=== PATIENT | female | born 1935 ===

== ENCOUNTER 2018-03-19 15:58 | Inpatient (IN) | payer MEDICARE, OTHER ==
[~2018-03-19] VITALS: Ht 165.1 cm; Wt 39.3 kg
[2018-03-19] MEDS ORDERED: SODIUM CHLORIDE FLUSH 10ML SYR IVF ONE (16:30)
[2018-03-19 16:58] LABS: INTERNATIONAL NORMALIZED RATIO 1.09 (0.93-1.1); PROTHROMBIN TIME 11.2 Seconds (9.6-11.5)
[2018-03-19 17:01] LABS: ALANINE AMINOTRANSFERASE 64 U/L (12-78); ALBUMIN 1.7 g/dL (3.4-5.0); ANION GAP 10 mmol/L (5-15); CALCIUM 8.3 mg/dL (8.5-10.1); CHLORIDE 101 mmol/L (98-107); CREATININE 0.63 mg/dL (0.55-1.02)
[2018-03-19 17:10] LABS: MEAN CORPUSCULAR HEMOGLOBIN 34.1 pg (27.0-34.8); MEAN CORPUSCULAR HGB CONC 34.5 g/dL (32.4-35.8); MEAN CORPUSCULAR VOLUME 98.7 fL (80-100); MEAN PLATELET VOLUME 7.6 fL (7.4-10.4); PLATELET COUNT 244 x10^3/uL (130-400); RED BLOOD COUNT 3.24 x10^6/uL (3.82-5.3); RED CELL DISTRIBUTION WIDTH 15.3 % (9.6-15.2)
[2018-03-19 17:15] LABS: ALKALINE PHOSPHATASE 1182 U/L (45-117); BILIRUBIN,TOTAL 12.5 mg/dL (0.2-1.0); MD YES; TOTAL PROTEIN 5.9 g/dL (6.4-8.2)
[2018-03-19 17:18] LABS: BASOS#(MANUAL) 0.09 x10^3/uL (0-0.1); BASOS% (MANUAL) 1 % (0-1); LYMPH#(MANUAL) 0.95 x10^3/uL (1-3.4); LYMPHS% (MANUAL) 11 % (22-44); MONOS#(MANUAL) 0.26 x10^3/uL (0.3-2.7); MONOS% (MANUAL) 3 % (2-9); SEG#(MANUAL) 7.31 x10^3/uL (1.8-6.8); SEGS% (MANUAL) 85 % (42-75)
[2018-03-19 17:19] LABS: <PLATELET ESTIMATE> ADEQUATE; <PLT MORPHOLOGY> NORMAL PLT MORPH; ANISOCYTOSIS 1+; TARGET CELLS 1+
[2018-03-19] MEDS ORDERED: POTASSIUM CHLORIDE 20 MEQ TAB.ER.PRT PO ONE ×2 (17:30→18:00)
[2018-03-19] MEDS ORDERED: morphine SULFATE 10 MG/ML, 1ML IVPush PRN (18:00)
[2018-03-19] MEDS ORDERED: LABETALOL 5MG/ML, 20ML IVPush PRN (18:00)
[2018-03-19] MEDS ORDERED: OXYcodone IR 5MG TABLET PO PRN (18:00)
[2018-03-19] MEDS ORDERED: ONDANSETRON 2MG/ML, 2ML IVPush PRN (18:00)
[2018-03-19] MEDS ORDERED: DOCUSATE 100 MG CAPSULE PO PRN (18:00)
[2018-03-19 18:19] LABS: ABSOLUTE RETICS # 0.057 x10^6/uL (0.5-2.5); RED BLOOD COUNT 3.22 x10^6/uL (3.82-5.3); RETICULOCYTE COUNT % 1.76 % (0.5-1.5)
[2018-03-19 18:41] LABS: BILIRUBIN,INDIRECT 2.1 mg/dL (0.0-2.0); BILIRUBIN,TOTAL 12.4 mg/dL (0.2-1.0)
[2018-03-19 18:46] LABS: BILIRUBIN, DIRECT 10.3 mg/dL (0.1-0.2)
[2018-03-19 19:20] VITALS: BP 135/72
[2018-03-19] MEDS ORDERED: [UNRECOGNIZED DRUG - OTHER] PO (19:47)
[2018-03-19] MEDS: NICOTINE 7 MG/24 HR PATCH.TD24 TD SCH (20:20)
[2018-03-19] MEDS: D5%-0.45% NACL 1,000 ML IV SCH (22:22)
[2018-03-20 03:20] VITALS: BP 107/61
[2018-03-20 03:52] LABS: MEAN CORPUSCULAR HEMOGLOBIN 34.2 pg (27.0-34.8); MEAN CORPUSCULAR HGB CONC 34.6 g/dL (32.4-35.8); MEAN CORPUSCULAR VOLUME 98.7 fL (80-100); MEAN PLATELET VOLUME 7.6 fL (7.4-10.4); PLATELET COUNT 223 x10^3/uL (130-400); RED BLOOD COUNT 2.97 x10^6/uL (3.82-5.3)
[2018-03-20 04:01] LABS: ALANINE AMINOTRANSFERASE 60 U/L (12-78); ALBUMIN 1.6 g/dL (3.4-5.0); ANION GAP 8 mmol/L (5-15); CALCIUM 7.4 mg/dL (8.5-10.1); CHLORIDE 104 mmol/L (98-107)
[2018-03-20 04:16] LABS: ALKALINE PHOSPHATASE 1131 U/L (45-117); BILIRUBIN,TOTAL 11.3 mg/dL (0.2-1.0); CREATININE 0.51 mg/dL (0.55-1.02); TOTAL PROTEIN 5.4 g/dL (6.4-8.2)
[2018-03-20 04:21] LABS: MD YES
[2018-03-20 04:24] LABS: ANISOCYTOSIS 1+; EOS#(MANUAL) 0.37 x10^3/uL (0.0-0.4); EOS% (MANUAL) 4 % (1-7); LYMPH#(MANUAL) 1.67 x10^3/uL (1-3.4); LYMPHS% (MANUAL) 18 % (22-44); MONOS#(MANUAL) 0.37 x10^3/uL (0.3-2.7); MONOS% (MANUAL) 4 % (2-9); SEG#(MANUAL) 6.88 x10^3/uL (1.8-6.8); SEGS% (MANUAL) 74 % (42-75); TARGET CELLS 1+
[2018-03-20 04:25] LABS: <PLATELET ESTIMATE> ADEQUATE; <PLT MORPHOLOGY> NORMAL PLT MORPH
[2018-03-20 08:59] VITALS: BP 97/50
[2018-03-20] MEDS ORDERED: FENTANYL PF 250 MCG/5ML ONE (13:32)
[2018-03-20] MEDS ORDERED: MIDAZOLAM 1 MG/ML, 2ML ONE (13:32)
[2018-03-20] MEDS ORDERED: LIDOCAINE-MPF 2% ,5ML ONE (13:33)
[2018-03-20] MEDS ORDERED: ROCURONIUM 10MG/ML,5ML ONE (13:33)
[2018-03-20] MEDS ORDERED: PROPOFOL 10 MG/ML, 20ML ONE (13:33)
[2018-03-20] MEDS ORDERED: PHENYLEPHRINE 10 MG/ML ONE (13:53)
[2018-03-20] MEDS ORDERED: MEPERIDINE/PF 25MG/0.5ML IVPush PRN (14:30)
[2018-03-20] MEDS ORDERED: FENTANYL PF 100 MCG/2ML IV PRN (14:30)
[2018-03-20] MEDS ORDERED: ALBUTEROL/IPRATROPIUM 2.5MG/0.5MG, 3 ML NPPB PRN (14:30)
[2018-03-20] MEDS ORDERED: HALOPERIDOL 5 MG/ML IV PRN (14:30)
[2018-03-20] MEDS ORDERED: ONDANSETRON 2MG/ML, 2ML IV PRN (14:30)
[2018-03-20] MEDS ORDERED: OXYcodone 5 MG/5 ML ORAL.SOL UDC PO PRN (14:30)
[2018-03-20] MEDS ORDERED: HYDROmorphone 1 MG/ML, 1ML IV PRN (14:30)
[2018-03-20] MEDS ORDERED: OMNIPAQUE 350 MG/ML, 50 ML BOTTLE ONE (15:38)
[2018-03-20 16:15] VITALS: BP 100/55
[2018-03-20] MEDS: D5%-0.45% NACL 1,000 ML IV SCH (17:21)
[2018-03-20 20:25] VITALS: BP 113/61
[2018-03-20] MEDS: NICOTINE 7 MG/24 HR PATCH.TD24 TD SCH (20:37)
[2018-03-20] MEDS: NEUTRA PHOS K 250 MG TABLET PO SCH (20:37)
[2018-03-20 21:11] VITALS: BP 102/57
[2018-03-21 00:48] VITALS: BP 112/60
[2018-03-21 05:49] LABS: ALBUMIN 1.5 g/dL (3.4-5.0); ANION GAP 9 mmol/L (5-15); CALCIUM 7.3 mg/dL (8.5-10.1); CHLORIDE 107 mmol/L (98-107)
[2018-03-21 05:58] LABS: MEAN CORPUSCULAR HEMOGLOBIN 33.4 pg (27.0-34.8); MEAN CORPUSCULAR HGB CONC 33.8 g/dL (32.4-35.8); MEAN CORPUSCULAR VOLUME 98.6 fL (80-100); MEAN PLATELET VOLUME 7.6 fL (7.4-10.4); PLATELET COUNT 231 x10^3/uL (130-400); RED BLOOD COUNT 3.04 x10^6/uL (3.82-5.3); RED CELL DISTRIBUTION WIDTH 14.9 % (9.6-15.2)
[2018-03-21 06:04] LABS: ALANINE AMINOTRANSFERASE 58 U/L (12-78); ALKALINE PHOSPHATASE 1070 U/L (45-117); BILIRUBIN,TOTAL 7.2 mg/dL (0.2-1.0); CREATININE 0.58 mg/dL (0.55-1.02); TOTAL PROTEIN 5.6 g/dL (6.4-8.2)
[2018-03-21 06:48] VITALS: BP 101/55
[2018-03-21 06:49] LABS: MD YES
[2018-03-21 06:53] LABS: BASOS#(MANUAL) 0.07 x10^3/uL (0-0.1); BASOS% (MANUAL) 1 % (0-1); LYMPH#(MANUAL) 1.77 x10^3/uL (1-3.4); LYMPHS% (MANUAL) 26 % (22-44); MONOS#(MANUAL) 0.48 x10^3/uL (0.3-2.7); MONOS% (MANUAL) 7 % (2-9); SEG#(MANUAL) 4.49 x10^3/uL (1.8-6.8); SEGS% (MANUAL) 66 % (42-75)
[2018-03-21 06:54] LABS: ANISOCYTOSIS 1+
[2018-03-21 06:55] LABS: TARGET CELLS 1+
[2018-03-21 06:56] LABS: <PLATELET ESTIMATE> ADEQUATE; <PLT MORPHOLOGY> NORMAL PLT MORPH; SPHEROCYTES 1+
[2018-03-21] MEDS ORDERED: POTASSIUM CHLORIDE 20 MEQ TAB.ER.PRT PO ONE (09:30)
[2018-03-21] MEDS: NEUTRA PHOS K 250 MG TABLET PO SCH ×3 (09:55→21:16)
[2018-03-21] MEDS ORDERED: OMNIPAQUE 350 MG/ML, 100ML BOTTLE ONE (13:45)
[2018-03-21 14:21] VITALS: BP 127/60
[2018-03-21 19:48] VITALS: BP 101/47
[2018-03-21] MEDS: NICOTINE 7 MG/24 HR PATCH.TD24 TD SCH (21:16)
[2018-03-22 00:54] VITALS: BP 115/61
[2018-03-22 04:52] LABS: ALANINE AMINOTRANSFERASE 44 U/L (12-78); ALBUMIN 1.4 g/dL (3.4-5.0); ANION GAP 9 mmol/L (5-15); CALCIUM 7.3 mg/dL (8.5-10.1); CHLORIDE 107 mmol/L (98-107); CREATININE 0.48 mg/dL (0.55-1.02)
[2018-03-22 04:54] LABS: ALKALINE PHOSPHATASE 943 U/L (45-117); BILIRUBIN,TOTAL 5.1 mg/dL (0.2-1.0)
[2018-03-22 07:28] VITALS: BP 100/52
[2018-03-22] MEDS: NEUTRA PHOS K 250 MG TABLET PO SCH (10:30)
[2018-03-22 12:30] VITALS: BP 112/65
[2018-03-22] MEDS ORDERED: NICO-485 TD (12:44)
[2018-03-22] MEDS ORDERED: DOCU-131 PO (12:44)
[2018-03-22] MEDS ORDERED: ACET325T21 PO (12:44)
== END 2018-03-22 15:05 | disposition home or self-care (01) | DRG 444 ==
LOC: ED 16:26 → EDIP 16:27 → ED 16:46 → 3NW 17:55
PROVIDERS: ADMIT Hospitalist; ATTEND Hospitalist
PROC: 0FB98ZX Excision of Common Bile Duct, Via Natural or Artificial Opening Endoscopic, Diagnostic (ICD-10-PCS; 2018-03-20)
PROC: BF101ZZ Fluoroscopy of Bile Ducts using Low Osmolar Contrast (ICD-10-PCS; 2018-03-20)
PROC: 0DJ08ZZ Inspection of Upper Intestinal Tract, Via Natural or Artificial Opening Endoscopic (ICD-10-PCS; 2018-03-20)
PROC: 0F798DZ Dilation of Common Bile Duct with Intraluminal Device, Via Natural or Artificial Opening Endoscopic (ICD-10-PCS; principal; 2018-03-20 14:00)
DX: K83.1 Obstruction of bile duct (principal); E43 Unspecified severe protein-calorie malnutrition; Z68.1 Body mass index [BMI] 19.9 or less, adult; Z72.0 Tobacco use; E87.6 Hypokalemia; D63.8 Anemia in other chronic diseases classified elsewhere; K86.89 Other specified diseases of pancreas; K21.9 Gastro-esophageal reflux disease without esophagitis; E83.39 Other disorders of phosphorus metabolism; K59.00 Constipation, unspecified; K76.89 Other specified diseases of liver; R62.7 Adult failure to thrive; Z66 Do not resuscitate; Z83.3 Family history of diabetes mellitus; R68.81 Early satiety; R94.5 Abnormal results of liver function studies; Z88.0 Allergy status to penicillin; Z88.2 Allergy status to sulfonamides
CPT/HCPCS: 36415; 74170; 74328; 80053; 82247; 82248; 82728; 83540; 83550; 83605; 83690; 83735; 84100; 85025; 85045; 85610; 85730; 88104; 88112; 93970; 99285; G0378; J2250; J2704; J3010; J3490; Q9967; C1769; C1894; C2625; J2370

== ENCOUNTER 2018-04-27 10:36 | Day surgery (SDC) | payer MEDICARE, OTHER ==
[~2018-04-27] VITALS: Ht 162.6 cm; Wt 36.8 kg
[~2018-04-27 10:36] MED LIST: ACET325T21 PO; DOCU-131 PO; NICO-485 TD; [UNRECOGNIZED DRUG - OTHER] PO; no meds per pt
[2018-04-27 11:21] VITALS: BP 127/72
[2018-04-27] MEDS ORDERED: LACTATED RINGERS 1,000 ML IV SCH (11:46)
[2018-04-27] MEDS ORDERED: CIPROFLOXACIN/PMX 400MG/200ML 200 ML ONE (13:03)
[2018-04-27] MEDS ORDERED: PROPOFOL 10 MG/ML, 20ML ONE (13:05)
[2018-04-27] MEDS ORDERED: HYDROmorphone 2 MG/ML, 1ML IVPush PRN (13:30)
[2018-04-27] MEDS ORDERED: hydrALAzine 20 MG/ML, 1ML IV PRN (13:30)
[2018-04-27] MEDS ORDERED: FENTANYL PF 100 MCG/2ML IV PRN (13:30)
[2018-04-27] MEDS ORDERED: LABETALOL 5MG/ML, 20ML IV PRN (13:30)
[2018-04-27] MEDS ORDERED: ALBUTEROL SULFATE 2.5 MG/3 ML NPPB PRN (13:30)
[2018-04-27] MEDS ORDERED: OXYcodone 5 MG/5 ML ORAL.SOL UDC PO PRN (13:30)
== END 2018-04-27 15:50 | disposition home or self-care (01) ==
LOC: OUT 10:36
PROVIDERS: ATTEND Internal Medicine
DX: K85.90 Acute pancreatitis without necrosis or infection, unspecified (principal); K86.2 Cyst of pancreas; Z79.899 Other long term (current) drug therapy; Z88.1 Allergy status to other antibiotic agents; Z88.0 Allergy status to penicillin; Z85.00 Personal history of malignant neoplasm of unspecified digestive organ
CPT/HCPCS: 43238; 82150; 82378; 88112; 88172; 88173; 88177; 88305; J0744; J2704